=== PATIENT | male | born 1985 | race Caucasian/White ===

== ENCOUNTER 2024-12-13 02:31 | Inpatient (IN) | payer OTHER ==
[~2024-12-13] VITALS: Ht 167.6 cm; Wt 87.4 kg
[2024-12-13] MEDS: SODIUM CHLORIDE 0.9% 1,000 ML IV ONE (02:51)
[2024-12-13] MEDS: LevETIRAcetam 1,000 MG in DEXTROSE 5%-WATER 100 ML IV ONE (02:52)
[2024-12-13 03:00] LABS: BAND NEUTROPHILS % (MANUAL) 0 % (0-5)
[2024-12-13 03:02] LABS: HEMATOCRIT 51.4 % (41-53); HEMOGLOBIN 16.5 g/dL (13.5-17.5); MEAN CORPUSCULAR HEMOGLOBIN 30.6 pg (26.0-34.0); MEAN CORPUSCULAR HGB CONC 32.1 G/dL (31.0-37.0); MEAN CORPUSCULAR VOLUME 95 fL (80-100); PLATELET COUNT (AUTO) 356 K/uL (150-450); RED BLOOD CELL COUNT(AUTO) 5.39 MIL/uL (4.50-5.90); WHITE BLOOD COUNT (AUTO) 20.7 K/uL (4.5-11.0)
[2024-12-13 03:13] LABS: ANION GAP 31 mmol/L (8-16); CALCIUM, TOTAL 9.5 mg/dL (8.8-10.5); CARBON DIOXIDE 10 mmol/L (22-29); CHLORIDE 103 mmol/L (98-107); CREATININE 1.25 mg/dL (0.60-1.30); GLOMERULAR FILTR. RATE CALC > 60 mL/min (>60); GLUCOSE,RANDOM 256 mg/dL (70-110); POTASSIUM 3.7 mmol/L (3.5-5.1); SODIUM SERUM 144 mmol/L (136-145); UREA NITROGEN, BLOOD 12 mg/dL (7-18)
[2024-12-13 03:18] LABS: CREATINE KINASE, TOTAL ONLY 225 U/L (39-308)
[2024-12-13 03:42] LABS: EOSINOPHILS % (MANUAL) 3 % (1-6); LYMPHOCYTES % (MANUAL) 41 % (22-44); MONOCYTES % (MANUAL) 7 % (2-9); RBC MORPHOLOGY COMMENT NORMAL RBC MORPH; SEGMENTED NEUTROPHILS % 49 % (40-70); TOTAL CELLS COUNTED 100
[2024-12-13] MEDS ORDERED: PHEN100C74 PO (03:58)
[2024-12-13 07:04] LABS: AMPHET/METH SCREEN,URINE NEGATIVE (NEGATIVE); BARBITURATE SCREEN, URINE NEGATIVE (NEGATIVE); BENZODIAZEPINES SCREEN,URINE POSITIVE (NEGATIVE); CANNABINOID SCREEN,URINE NEGATIVE (NEGATIVE); COCAINE SCREEN,URINE NEGATIVE (NEGATIVE); METHADONE SCREEN, URINE NEGATIVE (NEGATIVE); OPIATE SCREEN,URINE NEGATIVE (NEGATIVE); PHENCYCLIDINE SCREEN,URINE NEGATIVE (NEGATIVE)
[2024-12-13 07:06] LABS: ALCOHOL, URINE DRUG SCREEN NEGATIVE (NEGATIVE)
[2024-12-13 09:29] VITALS: BP 109/75; PULSE 79; RESP 18; TEMP 97.9; O2SAT 98
[2024-12-13 11:56] VITALS: BP 123/80; PULSE 89; RESP 18; TEMP 98.1; O2SAT 98
[2024-12-13] MEDS ORDERED: ZOLPIDEM TARTRATE 5 MG TABLET PO PRN (13:00)
[2024-12-13] MEDS ORDERED: HYDROCODONE/ACETAMINOPHEN 5-325 MG TABLET PO PRN (13:00)
[2024-12-13] MEDS ORDERED: BISACODYL 10 MG RECTAL RECTAL SUPPOSITORY PR PRN (13:00)
[2024-12-13] MEDS ORDERED: LORazepam 2 MG/ML VIAL IVP PRN (13:00)
[2024-12-13] MEDS ORDERED: MAGNESIUM HYDROXIDE SUSPENSION 30 ML UDCUP PO PRN (13:00)
[2024-12-13] MEDS ORDERED: MORPHINE SULFATE 2 MG/ML SYRINGE IVP PRN (13:00)
[2024-12-13] MEDS: ONDANSETRON HCL 4 MG/2 ML VIAL IVP PRN (13:24)
[2024-12-13] MEDS: PHENYTOIN SODIUM 100 MG ER CAPSULE PO SCH ×2 (14:05→20:19)
[2024-12-13 15:56] VITALS: BP 114/73; PULSE 86; RESP 19; TEMP 98.5; O2SAT 98
[2024-12-13] MEDS: HEPARIN SODIUM,PORCINE 5,000 UNITS/ML VIAL SQ SCH (16:00)
[2024-12-13 20:00] VITALS: BP 120/91; PULSE 96; RESP 19; TEMP 99.3; O2SAT 98
[2024-12-13] MEDS: DOCUSATE SODIUM 100 MG CAPSULE PO SCH (20:20)
[2024-12-13] MEDS: ACETAMINOPHEN 325 MG TABLET PO PRN (23:17)
[2024-12-14] VITALS: BP 119/68; PULSE 79; RESP 17; TEMP 99; O2SAT 98
[2024-12-14 04:00] VITALS: BP 113/58; PULSE 71; RESP 18; TEMP 98.3; O2SAT 98
[2024-12-14 06:47] LABS: BASOPHILS % (AUTO) 0.3 % (0.0-2.0); EOSINOPHILS % (AUTO) 0.5 % (1.0-6.0); HEMATOCRIT 39.5 % (41-53); HEMOGLOBIN 13.9 g/dL (13.5-17.5); LYMPHOCYTES # (AUTO) 1.4 K/uL (1.0-4.8); LYMPHOCYTES % (AUTO) 13.3 % (22.0-44.0); MEAN CORPUSCULAR HEMOGLOBIN 30.8 pg (26.0-34.0); MEAN CORPUSCULAR HGB CONC 35.2 G/dL (31.0-37.0); MEAN CORPUSCULAR VOLUME 87 fL (80-100); MONOCYTES # (AUTO) 0.9 K/uL (0.1-1.0); MONOCYTES % (AUTO) 8.6 % (2.0-9.0); NEUTROPHILS # (AUTO) 8.2 K/uL (1.8-7.7); NEUTROPHILS % (AUTO) 77.3 % (40.0-70.0); PLATELET COUNT (AUTO) 267 K/uL (150-450); RED BLOOD CELL COUNT(AUTO) 4.53 MIL/uL (4.50-5.90); RED CELL DISTRIBUTION WIDTH 12.8 % (11.5-14.5); WHITE BLOOD COUNT (AUTO) 10.6 K/uL (4.5-11.0)
[2024-12-14 06:59] LABS: CALCIUM, TOTAL 8.4 mg/dL (8.8-10.5); CREATININE 5.13 mg/dL (0.60-1.30); POTASSIUM 3.6 mmol/L (3.5-5.1)
[2024-12-14 07:59] VITALS: BP 117/64; PULSE 84; RESP 18; TEMP 97.9; O2SAT 97
[2024-12-14] MEDS: PANTOPRAZOLE SODIUM 40 MG DR TABLET PO SCH (08:27)
[2024-12-14 12:05] VITALS: BP 120/76; PULSE 63; RESP 18; TEMP 98.3; O2SAT 97
[2024-12-14 13:25] LABS: PHENYTOIN (DILANTIN) 3.5 mcg/mL (10.0-20.0)
[2024-12-14] MEDS: SODIUM CHLORIDE 0.9% 1,000 ML IV ONE (14:15)
[2024-12-14 15:15] VITALS: BP 120/61; PULSE 72; RESP 16; TEMP 97.7; O2SAT 98
[2024-12-14 20:10] VITALS: BP 111/61; PULSE 66; RESP 18; TEMP 98.1; O2SAT 98
[2024-12-15 04:52] VITALS: BP 120/70; PULSE 66; RESP 19; TEMP 98.6; O2SAT 98
[2024-12-15 07:35] LABS: BASOPHILS % (AUTO) 0.3 % (0.0-2.0); EOSINOPHILS % (AUTO) 0.5 % (1.0-6.0); HEMATOCRIT 39.2 % (41-53); HEMOGLOBIN 13.8 g/dL (13.5-17.5); LYMPHOCYTES # (AUTO) 1.1 K/uL (1.0-4.8); LYMPHOCYTES % (AUTO) 13.1 % (22.0-44.0); MEAN CORPUSCULAR HEMOGLOBIN 30.8 pg (26.0-34.0); MEAN CORPUSCULAR HGB CONC 35.1 G/dL (31.0-37.0); MEAN CORPUSCULAR VOLUME 88 fL (80-100); MONOCYTES # (AUTO) 0.8 K/uL (0.1-1.0); MONOCYTES % (AUTO) 9.2 % (2.0-9.0); NEUTROPHILS # (AUTO) 6.6 K/uL (1.8-7.7); NEUTROPHILS % (AUTO) 76.9 % (40.0-70.0); PLATELET COUNT (AUTO) 241 K/uL (150-450); RED BLOOD CELL COUNT(AUTO) 4.46 MIL/uL (4.50-5.90); RED CELL DISTRIBUTION WIDTH 12.4 % (11.5-14.5); WHITE BLOOD COUNT (AUTO) 8.6 K/uL (4.5-11.0)
[2024-12-15 07:54] LABS: CREATININE 8.57 mg/dL (0.60-1.30); POTASSIUM 4.2 mmol/L (3.5-5.1)
[2024-12-15 08:31] VITALS: BP 107/65; PULSE 72; RESP 18; TEMP 98.1; O2SAT 97
[2024-12-15 08:52] LABS: APPEARANCE,URINE CLEAR (CLEAR); BILIRUBIN,URINE NEGATIVE (NEGATIVE); COLOR,URINE COLORLESS (YELLOW); GLUCOSE, URINE (UA) NEGATIVE (NEGATIVE); KETONES,URINE NEGATIVE (NEGATIVE); LEUKOCYTE ESTERASE ,URINE NEGATIVE (NEGATIVE); NITRATE,URINE NEGATIVE (NEGATIVE); OCCULT BLOOD,URINE SMALL (NEGATIVE); PH,URINE 6.5 (5.0-8.0); PROTEIN,URINE 300-600,SEE CONFIRM mg/dL (NEGATIVE); SPECIFIC GRAVITIY, URINE 1.005 (1.003-1.030); UROBILINOGEN,URINE <=1.0 mg/dL (<=1.0)
[2024-12-15 08:58] LABS: SULFOSALICYLIC ACID,URINE 3+ (Negative)
[2024-12-15 08:59] LABS: BACTERIA,URINE None Seen /HPF (None Seen); WBC,URINE None Seen /HPF (0-5)
[2024-12-15] MEDS: RINGERS SOLUTION,LACTATED 1,000 ML IV SCH (10:41)
[2024-12-15 11:36] LABS: APPEARANCE,URINE CLEAR (CLEAR); BILIRUBIN,URINE NEGATIVE (NEGATIVE); COLOR,URINE COLORLESS (YELLOW); GLUCOSE, URINE (UA) NEGATIVE (NEGATIVE); KETONES,URINE NEGATIVE (NEGATIVE); LEUKOCYTE ESTERASE ,URINE NEGATIVE (NEGATIVE); NITRATE,URINE NEGATIVE (NEGATIVE); OCCULT BLOOD,URINE MODERATE (NEGATIVE); PROTEIN,URINE 100-200,SEE CONFIRM mg/dL (NEGATIVE); SPECIFIC GRAVITIY, URINE 1.005 (1.003-1.030); UROBILINOGEN,URINE <=1.0 mg/dL (<=1.0)
[2024-12-15 11:45] LABS: BACTERIA,URINE None Seen /HPF (None Seen); WBC,URINE None Seen /HPF (0-5)
[2024-12-15 11:55] LABS: PROTEIN,URINE RANDOM 98 mg/dL (0-11.9); SODIUM,URINE RANDOM 36 mmol/l (20-110)
[2024-12-15 15:36] LABS: CALCIUM, TOTAL 7.9 mg/dL (8.8-10.5); CREATININE 9.3 mg/dL (0.60-1.30); POTASSIUM 4.2 mmol/L (3.5-5.1)
[2024-12-15 19:35] VITALS: BP 111/62; PULSE 65; RESP 18; TEMP 98.6; O2SAT 98
[2024-12-16 04:53] VITALS: BP 123/59; PULSE 60; RESP 18; TEMP 98.6; O2SAT 99
[2024-12-16 06:29] LABS: CREATININE 10.28 mg/dL (0.60-1.30); PHOSPHORUS 6.6 mg/dL (2.5-4.9); POTASSIUM 4.1 mmol/L (3.5-5.1)
[2024-12-16 07:00] LABS: BASOPHILS % (AUTO) 0.6 % (0.0-2.0); EOSINOPHILS % (AUTO) 0.7 % (1.0-6.0); HEMATOCRIT 38.4 % (41-53); HEMOGLOBIN 13.4 g/dL (13.5-17.5); LYMPHOCYTES # (AUTO) 1.3 K/uL (1.0-4.8); LYMPHOCYTES % (AUTO) 16.4 % (22.0-44.0); MEAN CORPUSCULAR HEMOGLOBIN 30.3 pg (26.0-34.0); MEAN CORPUSCULAR HGB CONC 34.8 G/dL (31.0-37.0); MEAN CORPUSCULAR VOLUME 87 fL (80-100); MONOCYTES # (AUTO) 0.8 K/uL (0.1-1.0); MONOCYTES % (AUTO) 9.8 % (2.0-9.0); NEUTROPHILS # (AUTO) 5.6 K/uL (1.8-7.7); NEUTROPHILS % (AUTO) 72.5 % (40.0-70.0); PLATELET COUNT (AUTO) 243 K/uL (150-450); RED CELL DISTRIBUTION WIDTH 12.6 % (11.5-14.5); WHITE BLOOD COUNT (AUTO) 7.7 K/uL (4.5-11.0)
[2024-12-16 08:00] VITALS: BP 107/60; PULSE 71; RESP 18; TEMP 97.9; O2SAT 98
[2024-12-16 12:07] LABS: ALBUMIN/CREATININE RATIO 1224 mg/g creat (0-29); CREATININE, URINE (mALB) 48.2 mg/dL (Not Estab.)
[2024-12-16] MEDS: SODIUM CHLORIDE 0.9% 1,000 ML IV SCH (14:33)
[2024-12-16 17:31] LABS: CREATININE 10.54 mg/dL (0.60-1.30)
[2024-12-16 19:39] VITALS: BP 137/99; PULSE 55; RESP 18; TEMP 98.2; O2SAT 99
[2024-12-17 05:03] VITALS: BP 112/81; PULSE 64; RESP 18; TEMP 98.3; O2SAT 99
[2024-12-17 07:02] LABS: CALCIUM, TOTAL 7.6 mg/dL (8.8-10.5); CREATININE 10.43 mg/dL (0.60-1.30); PHOSPHORUS 6.5 mg/dL (2.5-4.9); POTASSIUM 4.4 mmol/L (3.5-5.1)
[2024-12-17 08:40] VITALS: BP_SYST 114; BP_SYST 124; BP_DIAS 45; BP_DIAS 73; PULSE 55; RESP 18; TEMP 98.3; O2SAT 99
[2024-12-17 20:11] VITALS: BP 141/84; PULSE 51; RESP 18; TEMP 98.4; O2SAT 99
[2024-12-18 04:56] VITALS: BP 117/71; PULSE 64; RESP 18; TEMP 98.5; O2SAT 98
[2024-12-18 07:02] LABS: BASOPHILS % (AUTO) 0.7 % (0.0-2.0); EOSINOPHILS % (AUTO) 3.4 % (1.0-6.0); HEMATOCRIT 38.9 % (41-53); HEMOGLOBIN 13.5 g/dL (13.5-17.5); LYMPHOCYTES # (AUTO) 1.7 K/uL (1.0-4.8); LYMPHOCYTES % (AUTO) 24.7 % (22.0-44.0); MEAN CORPUSCULAR HEMOGLOBIN 30.6 pg (26.0-34.0); MEAN CORPUSCULAR HGB CONC 34.8 G/dL (31.0-37.0); MEAN CORPUSCULAR VOLUME 88 fL (80-100); MONOCYTES # (AUTO) 0.6 K/uL (0.1-1.0); MONOCYTES % (AUTO) 9.5 % (2.0-9.0); NEUTROPHILS # (AUTO) 4.1 K/uL (1.8-7.7); NEUTROPHILS % (AUTO) 61.7 % (40.0-70.0); PLATELET COUNT (AUTO) 248 K/uL (150-450); RED BLOOD CELL COUNT(AUTO) 4.41 MIL/uL (4.50-5.90); RED CELL DISTRIBUTION WIDTH 12.5 % (11.5-14.5); WHITE BLOOD COUNT (AUTO) 6.7 K/uL (4.5-11.0)
[2024-12-18 07:37] LABS: CALCIUM, TOTAL 8.1 mg/dL (8.8-10.5); CREATININE 8.68 mg/dL (0.60-1.30); MAGNESIUM 2.4 mg/dL (1.80-2.40); PHOSPHORUS 5.4 mg/dL (2.5-4.9); POTASSIUM 4.6 mmol/L (3.5-5.1)
[2024-12-18 08:36] VITALS: BP 139/76; PULSE 62; RESP 20; TEMP 98.2; O2SAT 99
[2024-12-18 08:45] VITALS: BP 132/80; PULSE 62; RESP 18; TEMP 98.4; O2SAT 99
[2024-12-18 19:55] VITALS: BP 125/75; PULSE 51; RESP 18; TEMP 98.6; O2SAT 100
[2024-12-19 04:55] VITALS: BP 138/81; PULSE 64; RESP 18; TEMP 98.2; O2SAT 98
[2024-12-19 06:58] LABS: BASOPHILS % (AUTO) 0.8 % (0.0-2.0); EOSINOPHILS % (AUTO) 4.9 % (1.0-6.0); HEMATOCRIT 37.6 % (41-53); LYMPHOCYTES # (AUTO) 1.7 K/uL (1.0-4.8); LYMPHOCYTES % (AUTO) 26.7 % (22.0-44.0); MEAN CORPUSCULAR HEMOGLOBIN 30.4 pg (26.0-34.0); MEAN CORPUSCULAR HGB CONC 34.5 G/dL (31.0-37.0); MEAN CORPUSCULAR VOLUME 88 fL (80-100); MONOCYTES # (AUTO) 0.5 K/uL (0.1-1.0); MONOCYTES % (AUTO) 8.4 % (2.0-9.0); NEUTROPHILS # (AUTO) 3.9 K/uL (1.8-7.7); NEUTROPHILS % (AUTO) 59.2 % (40.0-70.0); PLATELET COUNT (AUTO) 259 K/uL (150-450); RED BLOOD CELL COUNT(AUTO) 4.26 MIL/uL (4.50-5.90); RED CELL DISTRIBUTION WIDTH 12.6 % (11.5-14.5); WHITE BLOOD COUNT (AUTO) 6.5 K/uL (4.5-11.0)
[2024-12-19 07:21] LABS: CALCIUM, TOTAL 8.3 mg/dL (8.8-10.5); CREATININE 6.11 mg/dL (0.60-1.30); PHOSPHORUS 5.2 mg/dL (2.5-4.9); POTASSIUM 4.2 mmol/L (3.5-5.1)
[2024-12-19 08:53] VITALS: BP 140/70; PULSE 52; RESP 18; TEMP 98.9; O2SAT 99
[2024-12-19] MEDS ORDERED: ACET-2247 PO (10:58)
[2024-12-19] MEDS ORDERED: PHEN100C74 PO (10:58)
[2024-12-19 19:06] LABS: ATYPICAL P-ANCA AB <1:20 titer (Neg:<1:20); CYTOPLASMIC (C-ANCA) AB, IGG <1:20 titer (Neg:<1:20)
[2024-12-19 19:50] VITALS: BP 126/67; PULSE 56; RESP 18; TEMP 98.1; O2SAT 99
[2024-12-20 04:40] VITALS: BP 110/60; PULSE 58; RESP 18; TEMP 98.4; O2SAT 98
[2024-12-20 07:28] LABS: BASOPHILS % (AUTO) 0.6 % (0.0-2.0); EOSINOPHILS % (AUTO) 4.7 % (1.0-6.0); HEMATOCRIT 38.8 % (41-53); HEMOGLOBIN 13.5 g/dL (13.5-17.5); LYMPHOCYTES # (AUTO) 1.7 K/uL (1.0-4.8); LYMPHOCYTES % (AUTO) 23.9 % (22.0-44.0); MEAN CORPUSCULAR HEMOGLOBIN 30.6 pg (26.0-34.0); MEAN CORPUSCULAR HGB CONC 34.7 G/dL (31.0-37.0); MEAN CORPUSCULAR VOLUME 88 fL (80-100); MONOCYTES # (AUTO) 0.5 K/uL (0.1-1.0); MONOCYTES % (AUTO) 7.5 % (2.0-9.0); NEUTROPHILS # (AUTO) 4.4 K/uL (1.8-7.7); NEUTROPHILS % (AUTO) 63.3 % (40.0-70.0); PLATELET COUNT (AUTO) 268 K/uL (150-450); RED CELL DISTRIBUTION WIDTH 12.9 % (11.5-14.5)
[2024-12-20 07:44] LABS: CALCIUM, TOTAL 8.8 mg/dL (8.8-10.5); CREATININE 4.32 mg/dL (0.60-1.30); POTASSIUM 4.4 mmol/L (3.5-5.1)
[2024-12-20 08:26] VITALS: BP 112/64; PULSE 57; RESP 18; TEMP 98.3; O2SAT 96
[2024-12-20 19:59] VITALS: BP 114/69; PULSE 64; RESP 18; TEMP 98.6; O2SAT 99
[2024-12-21 06:11] VITALS: BP 126/77; PULSE 68; RESP 18; TEMP 98.3; O2SAT 98
[2024-12-21 07:20] LABS: CALCIUM, TOTAL 9.3 mg/dL (8.8-10.5); CREATININE 3.27 mg/dL (0.60-1.30)
[2024-12-21 09:18] VITALS: BP 105/73; PULSE 64; RESP 18; TEMP 98.2; O2SAT 98
[2024-12-21] MEDS ORDERED: PANT-31 PO (10:39)
[2024-12-21 11:07] LABS: ALBUMIN URINE (ELP) 65.6 %; ALPHA-1 URINE (ELP) 5.8 %; TOTAL PROTEIN URINE 100.6 mg/dL (Not Estab.)
[2024-12-21 20:17] VITALS: BP 143/77; PULSE 54; RESP 18; TEMP 97.6; O2SAT 99
== END 2024-12-21 20:35 | DRG 100 ==
LOC: EMS 02:31 → EDH 06:51 → 5S 08:45 → 6S 12-14 14:50
PROVIDERS: ADMIT Internal Medicine; ATTEND Internal Medicine
DX: G40.909 Epilepsy, unspecified, not intractable, without status epilepticus (principal); N17.0 Acute kidney failure with tubular necrosis; M62.82 Rhabdomyolysis; E87.1 Hypo-osmolality and hyponatremia; R65.10 Systemic inflammatory response syndrome (SIRS) of non-infectious origin without acute organ dysfunction; D72.829 Elevated white blood cell count, unspecified; E11.65 Type 2 diabetes mellitus with hyperglycemia; N18.9 Chronic kidney disease, unspecified; R80.9 Proteinuria, unspecified
CPT/HCPCS: 71045; 76700; 76770; 80048; 80185; 80307; 81001; 81002; 82043; 82550; 82565; 82570; 83690; 83735; 84100; 84156; 84166; 84300; 84520; 85007; 85025; 85027; 86038; 86256; 89050; 93005; 96365; 99285; J0712; J1644; J2405; J7030; J7060; J7120; 36415-L1; 36415-TC